=== PATIENT | female | born 1970 ===

== ENCOUNTER 2024-02-06 06:43 | Day surgery (SDC) | payer OTHER ==
[2024-01-30 08:57] LABS: HEMATOCRIT 40.8 % (36.0-45.00); HEMOGLOBIN 14.1 g/dL (12.0-15.00); MEAN CELL VOLUME 88.2 fL (80.00-100.00); MEAN CORPUSCULAR HEMOGLOBIN 30.5 pg (27.00-32.0); MEAN CORPUSCULAR HGB CONC 34.5 g/dl (32.0-36.0); PLATELET COUNT 344 K/uL (150-450); RED BLOOD COUNT 4.62 M/uL (4.00-6.00); RED CELL DISTRIBUTION WIDTH 13.5 % (11.5-14.5)
[2024-01-30 09:19] LABS: INR 1.04; PARTIAL THROMBOPLASTIN TIME 27.9 SECONDS (22.0-34.0); PROTHROMBIN TIME 10.9 SECONDS (9.0-11.5)
[2024-01-30 09:54] LABS: PH,URINE 6.5 (5.0-8.0); URINE APPEARANCE Cloudy; URINE BILIRRUBIN Negative (NEGATIVE); URINE BLOOD Negative; URINE COLOR Yellow; URINE GLUCOSE Negative (NEGATIVE); URINE LEUKOCYTE Trace; URINE NITRATE Negative; URINE PROTEIN Negative (NEGATIVE); URINE UROBILINOGEN 0.2 E.U./dl
[2024-01-30 09:59] LABS: URINE BACTERIA 1157.8 uL (0.0-1933); URINE EPITHELIAL CELLS 16.5 uL (0.0-38.8); URINE RBC 65.9 uL (0.0-20.8); URINE WBC 15.6 uL (0.0-23.2)
[2024-01-30 10:18] LABS: ALBUMIN 3.8 gm/dL (3.4-5.0); CALCIUM 9.4 mg/dL (8.5-10.1); CREATININE SERUM 0.86 mg/dL (0.55-1.02); GFR 68.51; PHOSPHOROUS 2.5 mg/dL (2.5-4.9); POTASSIUM 3.93 mEq/L (3.5-5.1)
[~2024-02-06 06:43] MED LIST: DIURETICO; FLONASE; LOSARTAN POTAS100 MG; NORVASC; SINGULAIR; VASOFLEX HD CA1 EACH; VITAMINS
[2024-02-06] MEDS ORDERED: POVIDONE-IODINE 118 ML BOTT TOP ONE (10:07)
[2024-02-06] MEDS ORDERED: EPINEPHRINE HCL/PF 1 MG/ML AMPUL ONE (10:07)
[2024-02-06] MEDS ORDERED: CEFAZOLIN SODIUM 1,000 MG VIAL ONE (10:07)
[2024-02-06] MEDS ORDERED: LIDOCAINE HCL 1%/EPINEPHRINE 20ML VIAL IJ ONE (10:08)
[2024-02-06] MEDS ORDERED: CEPHALEXIN500 M1 PO (12:05)
[2024-02-06] MEDS ORDERED: CIPROFLOXACIN2.5 ML OTIC (12:05)
== END 2024-02-06 14:05 | disposition home or self-care (01) ==
LOC: CIR.AMB 06:43
PROVIDERS: ATTEND Otolaryngology Otology & Neurotology
DX: H72.02 Central perforation of tympanic membrane, left ear (principal); H90.12 Conductive hearing loss, unilateral, left ear, with unrestricted hearing on the contralateral side; H74.22 Discontinuity and dislocation of left ear ossicles; Z88.6 Allergy status to analgesic agent; G43.909 Migraine, unspecified, not intractable, without status migrainosus; J45.909 Unspecified asthma, uncomplicated; M19.90 Unspecified osteoarthritis, unspecified site; I10 Essential (primary) hypertension